=== PATIENT | male | born 1995 | race Caucasian/White ===

== ENCOUNTER 2024-11-07 19:05 | Emergency (ER) | payer OTHER ==
[2024-11-07 20:11] LABS: GLUCOSE,URINE NORMAL (NORMAL); OCCULT BLOOD,URINE NEGATIVE (NEGATIVE)
[2024-11-07 20:13] LABS: BASOPHILS ABSOLUTE AUTO 0.1 x10-3/uL (0.0-0.3); BASOPHILS PERCENT AUTO 0.7 % (0.3-3.8); EOSINOPHILS ABSOLUTE AUTO 0.3 x10-3/uL (0.0-0.6); EOSINOPHILS PERCENT AUTO 2.7 % (0.1-6.8); LYMPHOCYTES ABSOLUTE AUTO 2.8 x10-3/uL (0.5-4.5); LYMPHOCYTES PERCENT AUTO 26.5 % (15.8-45.3); MEAN PLATELET VOLUME 7.0 fL (6.7-11.0); MONOCYTES ABSOLUTE AUTO 1.1 x10-3/uL (0.0-1.2); MONOCYTES PERCENT AUTO 10.1 % (5.5-15.2); NEUTROPHILS ABSOLUTE AUTO 6.3 x10-3/uL (1.7-6.9); NEUTROPHILS PERCENT AUTO 60.0 % (40.3-71.8); PLATELET COUNT,PLT 293 x10(3)uL (117-477); RED BLOOD CELL COUNT 5.34 x10(6)uL (3.90-5.90); RED CELL DISTRIBUTION WIDTH 14.0 % (12.4-15.0); WHITE BLOOD CELL COUNT,WBC 10.5 x10-3/uL (3.2-10.1)
[2024-11-07 20:32] LABS: APPEARANCE,URINE CLEAR (CLEAR)
[2024-11-07 20:37] LABS: BLOOD UREA NITROGEN,BUN 26 mg/dL (7-18); CARBON DIOXIDE,CO2 32 mmol/L (21-32); CHLORIDE,CL 102 mmol/L (100-110); CREATININE 1.3 mg/dL (0.70-1.30); EST CRCL DRUG DOSING (CG) 85.35 mL/min; ESTIMATED GFR 77 mL/min (>60); GLUCOSE RANDOM 97 mg/dL (80-116); POTASSIUM,K 4.0 mmol/L (3.5-5.3); SODIUM,NA 138 mmol/L (135-145)
[2024-11-07 20:43] LABS: A/G RATIO 1.3; ALANINE AMINOTRANSFERASE,ALT 41 U/L (12-36); ASPARTATE AMNIOTRANSFERASE,AST 23 IU/L (5-25); BILIRUBIN TOTAL 0.6 mg/dL (0.1-1.3); PROTEIN TOTAL,TP 7.1 g/dL (6.0-8.0)
[2024-11-07] MEDS: Sodium Chloride 0.9% 10 ML Syringe FLUSH PRN (21:09)
== END 2024-11-07 21:30 | disposition home or self-care (01) ==
LOC: FB.ED 19:05
DX: K29.00 Acute gastritis without bleeding (principal); F17.290 Nicotine dependence, other tobacco product, uncomplicated
CPT/HCPCS: 36415; 74176; 80053; 81003; 83690; 85025; 86140; 96361; 96374; 99284-25; J2470; J7030